=== PATIENT | female | born 1995 | race Hispanic/Latino ===

== ENCOUNTER 2019-11-15 21:24 | Emergency (ER) | payer OTHER ==
[~2019-11-15] VITALS: Ht 157.5 cm; Wt 63.6 kg
[2019-11-15] MEDS ORDERED: CLAR5TAB11 PO (21:33)
[2019-11-15] MEDS ORDERED: diphenhydrAMINE 50MG/ML VIAL (J1200) IV STA (23:03)
[2019-11-15] MEDS ORDERED: KETOROLAC 30 MG/ML 1ML VIAL IV ONE (23:15)
[2019-11-15] MEDS ORDERED: NS 1,000 ML IV ONE (23:15)
[2019-11-15 23:43] LABS: BASO % 0.2 % (0.0-1.0); EOS % 0.3 % (0.0-3.0); HEMATOCRIT 42.2 % (36.0-47.0); LYMPH # 1.2 10^3/uL (1.5-5.0); LYMPH % 12.3 % (24.0-44.0); MEAN CORPUSCULAR HEMOGLOBIN 29.7 pg (27.0-33.0); MEAN CORPUSCULAR HGB CONC 33.2 g/dl (32.0-36.5); MEAN CORPUSCULAR VOLUME 89.4 fl (80.0-96.0); MONO # 0.6 10^3/uL (0.0-0.8); NEUTROPHILS % 80.9 % (36.0-66.0); PLATELET COUNT, AUTOMATED 257 10^3/uL (150-450); RED BLOOD COUNT 4.72 10^6/uL (4.00-5.40); WHITE BLOOD COUNT 9.9 10^3/uL (4.0-10.0)
[2019-11-16 00:03] LABS: ALBUMIN 3.9 GM/DL (3.2-5.2); BILIRUBIN,DIRECT 0.3 MG/DL (0.0-0.2); BILIRUBIN,TOTAL 0.7 MG/DL (0.2-1.0); TOTAL PROTEIN 7.3 GM/DL (6.4-8.2)
--- NOTE | 2019-11-16 00:31 | REPVR ---
PROCEDURE INFORMATION: Exam: US Abdomen, Limited; Right Upper Quadrant Exam date and time: 11/15/2019 12:21 AM Age: 24 years old Clinical indication: Abdominal pain; Additional info: Epigastric pain TECHNIQUE: Imaging protocol: US abdomen. Real time ultrasound with image documentation. Limited exam focused on the right upper quadrant. COMPARISON: No relevant prior studies available. FINDINGS: Liver: Focal fat in the left hepatic lobe along the falciform ligament fissure. Gallbladder: Normal. No gallstones. There is no gallbladder wall thickening. Common bile duct: Normal. No stones. No dilation. Pancreas: Visualized pancreas is unremarkable. Right kidney: Normal. No mass. No hydronephrosis. IMPRESSION: No acute findings. Focal fat in the left hepatic lobe along the falciform ligament fissure. Electronically signed by: Rashad Mari On 11/16/2019 00:31:11 AM
[2019-11-16] MEDS ORDERED: DICY10CA13 PO (00:49)
[2019-11-16 00:54] VITALS: BP 103/60
== END 2019-11-16 00:57 | disposition home or self-care (01) ==
LOC: M ED 21:24
DX: L50.9 Urticaria, unspecified (principal); R10.9 Unspecified abdominal pain; R11.2 Nausea with vomiting, unspecified; R19.7 Diarrhea, unspecified; J02.9 Acute pharyngitis, unspecified; Z79.899 Other long term (current) drug therapy
CPT/HCPCS: 76705; 80047; 80076; 83690; 84702; 85025; 96374; 96375; 99284; J1200; J1885